=== PATIENT | male | born 1995 | race Caucasian/White ===

== ENCOUNTER 2021-12-24 13:29 | Emergency (ER) | payer SELFPAY ==
[2021-12-24 14:32] LABS: #Eosinphils 0.1 10x3/uL (0.0-0.5); #Neutrophils 12.3 10x3/uL (1.5-8.4); %Basophils 0.3 % (0.0-2.0); %Eosinophils 0.7 % (0.0-6.0); %Lymphocytes 6.3 % (18.0-47.0); %Monocytes 6.9 % (0.0-10.0); %Neutrophils 85.5 % (40.0-75.0); Hemoglobin 16.3 g/dL (13.5-17.5); Mean Corpuscular Hemoglobin 32.2 pg (27.0-33.0); Mean Corpuscular Volume 92.1 fl (81.2-95.1); Platelet Count 241 10x3/uL (150-450); RBC Distribution Width 11.9 % (11.5-14.5); Red Blood Cell (RBC) Count 5.06 10x6/uL (4.32-5.72); White Blood Cell (WBC) Count 14.4 10x3/uL (3.5-10.5)
[2021-12-24 14:45] LABS: ALT (SGPT) 59 U/L (8-55); AST (SGOT) 48 U/L (5-34); Albumin 4.2 g/dL (3.5-5.0); Alkaline Phosphatase 70 U/L (40-110); Anion Gap 13 mmol/L (10-20); BUN (Urea Nitrogen) 12 mg/dL (8.9-20.6); Bilirubin, Total 0.7 mg/dL (0.2-1.2); Calc. Creatinine Clearance 0 mL/min (70-130); Calcium 9.1 mg/dL (7.8-10.44); Carbon Dioxide 24 mmol/L (22-29); Chloride 107 mmol/L (98-107); Estimated GFR 123; Globulin 2.8 g/dL (2.4-3.5); Glucose 159 mg/dL (70-105); Sodium 140 mmol/L (136-145)
[2021-12-24] MEDS ORDERED: Iopamidol 300 61% 100 ML VIAL FS ONE (15:14)
[2021-12-24] MEDS ORDERED: Lidocaine Viscous Sol 2% 15 ml UD Cup ONE (15:26)
[2021-12-24] MEDS ORDERED: Dicyclomine 20 MG/2 ML VIAL ONE (15:26)
[2021-12-24] MEDS ORDERED: Ondansetron PF 4 MG/2 ML Vial ONE (15:26)
[2021-12-24] MEDS ORDERED: Mag-Al Plus 1200 MG/1200 MG/120 MG/30 ML UDCUP ONE (15:26)
[2021-12-24 15:58] LABS: Bilirubin Neg (Negative); Blood, Urine Negative (Negative); Clarity Slightly Cloudy (Clear); Glucose, Urine (Dipstick) 100 mg/dL (Negative); Ketone, Urine Negative (Negative); Leukocyte Negative (Negative); Nitrite Negative (Negative); Protein, Urine (Dipstick) Negative (Neg-Trace); Specific Gravity, Urine 1.025 (1.002-1.036); Urobilinogen Normal mg/dL (Less than 2)
== END 2021-12-24 18:07 | disposition home or self-care (01) ==
LOC: CSHERS 13:29
DX: K52.9 Noninfective gastroenteritis and colitis, unspecified (principal); F17.210 Nicotine dependence, cigarettes, uncomplicated
CPT/HCPCS: 36415; 74177; 80053; 81003; 85025; 96372; J2405; Q9967

== ENCOUNTER 2022-07-18 17:00 | Emergency (ER) | payer SELFPAY ==
[2022-07-18] MEDS ORDERED: Ketorolac Tromethamine 30 MG/ML VIAL ONE (17:47)
[2022-07-18] MEDS ORDERED: Ondansetron PF 4 MG/2 ML Vial ONE (17:47)
[2022-07-18 17:48] LABS: #Basophils 0.1 10x3/uL (0.0-0.2); #Eosinphils 0.1 10x3/uL (0.0-0.5); #Monocytes 1.1 10x3/uL (0.0-1.1); #Neutrophils 6.3 10x3/uL (1.5-8.4); %Basophils 0.6 % (0.0-2.0); %Eosinophils 0.9 % (0.0-6.0); %Lymphocytes 3.9 % (18.0-47.0); %Monocytes 14.2 % (0.0-10.0); %Neutrophils 79.9 % (40.0-75.0); Hemoglobin 16.2 g/dL (13.5-17.5); Mean Corpuscular HGB CONC 35.6 g/dL (32.0-36.0); Mean Corpuscular Hemoglobin 32.1 pg (27.0-33.0); Mean Corpuscular Volume 90.1 fl (81.2-95.1); Mean Platelet Volume 9.5 fl (7.4-10.4); Platelet Count 235 10x3/uL (150-450); RBC Distribution Width 11.4 % (11.5-14.5); Red Blood Cell (RBC) Count 5.05 10x6/uL (4.32-5.72); White Blood Cell (WBC) Count 7.9 10x3/uL (3.5-10.5)
[2022-07-18 17:57] LABS: Bilirubin Neg (Negative); Blood, Urine Negative (Negative); Clarity Clear (Clear); Glucose, Urine (Dipstick) Normal (Negative); Ketone, Urine 150 mg/dL (Negative); Leukocyte 25 (Negative); Nitrite Negative (Negative); Protein, Urine (Dipstick) 15 mg/dl (Neg-Trace); Urobilinogen Normal mg/dL (Less than 2)
[2022-07-18 17:59] LABS: ALT (SGPT) 26 U/L (8-55); AST (SGOT) 28 U/L (5-34); Albumin 4.6 g/dL (3.5-5.0); Alkaline Phosphatase 48 U/L (40-110); Anion Gap 15 mmol/L (10-20); BUN (Urea Nitrogen) 13 mg/dL (8.9-20.6); Bilirubin, Total 0.6 mg/dL (0.2-1.2); Calc. Creatinine Clearance 0 mL/min (70-130); Calcium 9.1 mg/dL (7.8-10.44); Carbon Dioxide 20 mmol/L (22-29); Chloride 101 mmol/L (98-107); Estimated GFR 88; Globulin 2.9 g/dL (2.4-3.5); Glucose 88 mg/dL (70-105); Lipase 12 U/L (8-78); Potassium 3.8 mmol/L (3.5-5.1); Protein, Total 7.5 g/dL (6.0-8.3); Sodium 132 mmol/L (136-145)
[2022-07-18 18:12] LABS: Bacteria/HPF 2+ HPF (None Seen); Mucous/LPF 3+ LPF (<2+); RBC/HPF None Seen HPF (0-3); Squamous Epithelial 0-3 HPF (0-3); WBC/HPF 0-3 HPF (0-3)
[2022-07-18] MEDS ORDERED: cefTRIAXone\\ROCEPHIN 1 GM VIAL ONE (18:38)
[2022-07-18 20:07] LABS: SARS-CoV-2 NAA Rapid Test DETECTED (NotDetected)
[2022-07-19 11:32] LABS: Chlam.trachomatis by PCR,Urine Not Detected (NotDetected)
== END 2022-07-18 21:04 | disposition home or self-care (01) ==
LOC: CSHERS 17:00
DX: U07.1 COVID-19 (principal); M54.50 Low back pain, unspecified; N30.90 Cystitis, unspecified without hematuria; N10 Acute pyelonephritis; F17.210 Nicotine dependence, cigarettes, uncomplicated
CPT/HCPCS: 36415; 80053; 81003; 81015; 83605; 83690; 84145; 84443; 85025; 85652; 86140; 87040; 87086; 87491; 87591; 96361; 96365; 96375; J0696; J1885; J2405